=== PATIENT | female | born 1995 | race Caucasian/White ===

== ENCOUNTER 2022-07-04 19:44 | Emergency (ER) | payer OTHER ==
[2022-07-04 19:50] VITALS: RESP 18; TEMP 98.2; BMI 35.9
[2022-07-04 21:39] LABS: BASO % 0.8 % (0-2.0); EOS % 0.8 % (0-4.5); HEMATOCRIT 42.4 % (32.4-45.2); HEMOGLOBIN 14.2 GM/dL (10.7-15.3); LYMPH % 31.1 % (8-40); MCH 28.5 pg (25.7-33.7); MCHC 33.4 g/dl (32.0-36.0); MEAN CELL VOLUME 85.4 fl (80-96); MEAN PLT VOLUME 8.7 fl (7.5-11.1); MONO % 8.7 % (3.8-10.2); NEUT % 58.6 % (42.8-82.8); PLATELET COUNT 233 10^3/uL (134-434); RBC 4.96 M/mm3 (3.60-5.2); RDW 14.4 % (11.6-15.6); WHITE BLOOD COUNT 5.5 K/mm3 (4.0-10.0)
[2022-07-04 21:45] LABS: INR 1.04 (0.83-1.09)
[2022-07-04 21:48] LABS: ACTIVATED PTT 32.2 SECONDS (25.2-36.5)
[2022-07-04 21:56] LABS: ALBUMIN 3.7 g/dl (3.4-5.0); BLOOD UREA NITROGEN 6.9 mg/dL (7-18); CALCIUM 9.1 mg/dL (8.5-10.1)
[2022-07-04 22:00] LABS: CREATININE 0.8 mg/dL (0.55-1.3)
[2022-07-04 22:01] LABS: BILIRUBIN,TOTAL 0.6 mg/dL (0.2-1); TOT PROT 7.4 g/dl (6.4-8.2)
[2022-07-05] MEDS ORDERED: ACETAMINOPHEN 1000 MG/100 ML BAG IVPB ONE (00:23)
[2022-07-05] MEDS ORDERED: ACETAMINOPHEN INJECTION 100 ML IVPB ONE (00:29)
[2022-07-05 00:37] VITALS: BP 121/74; PULSE 88
== END 2022-07-05 02:08 | disposition home or self-care (01) ==
LOC: JER 19:44
DX: O20.8 Other hemorrhage in early pregnancy (principal); Z3A.10 10 weeks gestation of pregnancy
CPT/HCPCS: 0241U-QW; 36415; 76817-TC; 80053; 84702; 85025; 85610; 85730; 86850; 86900; 86901; 87086; 99284-25

== ENCOUNTER 2024-04-19 14:09 | Emergency (ER) | payer SELFPAY ==
[2024-04-19 14:20] VITALS: RESP 20; BMI 37.2
[2024-04-19] MEDS ORDERED: ACETAMINOPHEN 325 MG TABLET (FP) ONE (15:51)
[2024-04-19] MEDS: ACETAMINOPHEN 325 MG TABLET (FP) PO ONE (16:02)
[2024-04-19 16:18] LABS: BASO % 1.3 % (0-2.0); EOS % 1.2 % (0-4.5); HEMATOCRIT 39.3 % (32.4-45.2); HEMOGLOBIN 13.3 GM/dL (10.7-15.3); LYMPH % 42.6 % (8-40); MCH 28.9 pg (25.7-33.7); MCHC 33.9 g/dl (32.0-36.0); MEAN CELL VOLUME 85.1 fl (80-96); MONO % 7.3 % (3.8-10.2); NEUT % 47.6 % (42.8-82.8); PLATELET COUNT 212 10^3/uL (134-434); RBC 4.62 M/mm3 (3.60-5.2); RDW 14.9 % (11.6-15.6); WHITE BLOOD COUNT 4.5 K/mm3 (4.0-10.0)
[2024-04-19 16:38] LABS: POTASSIUM 4.3 mmol/L (3.5-5.1)
[2024-04-19 16:40] LABS: CALCIUM 8.8 mg/dL (8.5-10.1)
[2024-04-19 16:41] LABS: BLOOD UREA NITROGEN 12.8 mg/dL (7-18)
[2024-04-19 16:44] LABS: CREATININE 0.8 mg/dL (0.55-1.3)
[2024-04-19 16:46] LABS: BILIRUBIN,TOTAL 0.4 mg/dL (0.2-1); TOT PROT 7.3 g/dl (6.4-8.2)
[2024-04-19 17:02] LABS: EPI CELLS 11 /uL (0-25.1); HYALINE CASTS 0 /uL (0-3.1); URINE APPEARANCE CLEAR; URINE BACTERIA 194 /uL (0-1359); URINE BILIRUBIN NEGATIVE (NEGATIVE); URINE COLOR YELLOW; URINE GLUCOSE (UA) NEGATIVE (NEGATIVE); URINE KETONE NEGATIVE (NEGATIVE); URINE LEUK ESTERASE TRACE (NEGATIVE); URINE NITRITE NEGATIVE (NEGATIVE); URINE PROTEIN NEGATIVE (NEGATIVE); URINE RBC 11 /uL (0-23.9); URINE WBC 8 /uL (0-25.8)
[2024-04-19 17:34] LABS: HIV INTERPRETATION NEGATIVE (NEGATIVE)
[2024-04-19 17:41] VITALS: BP 124/76; PULSE 57; TEMP 98.8
== END 2024-04-19 17:41 | disposition home or self-care (01) ==
LOC: JER 14:09
DX: R19.7 Diarrhea, unspecified (principal); R14.0 Abdominal distension (gaseous); M54.2 Cervicalgia; M54.50 Low back pain, unspecified; R51.9 Headache, unspecified; R11.0 Nausea; R10.9 Unspecified abdominal pain
CPT/HCPCS: 36415; 80053; 81003; 84702; 85025; 86803; 87040; 87389; 99283-25